=== PATIENT | female | born 1985 | race African-American/Black ===

== ENCOUNTER 2025-01-14 23:39 | Emergency (ER) | payer SELFPAY ==
[~2025-01-14] VITALS: Ht 142.2 cm; Wt 127.5 kg
[2025-01-14 23:39] VITALS: BP 128/57; PULSE 69; RESP 18; TEMP 98.5; O2SAT 99
[2025-01-15] MEDS ORDERED: DILAUDID ONE ×2 (00:31→01:54)
[2025-01-15] MEDS ORDERED: ASPIRIN EC PO ONE (00:31)
[2025-01-15] MEDS: ASPIRIN EC PO STA (00:44)
[2025-01-15] MEDS: DILAUDID IM STA ×2 (00:45→02:02)
[2025-01-15 00:48] VITALS: BP 128/57; PULSE 69; RESP 18; TEMP 98.5; O2SAT 99
[2025-01-15 01:00] VITALS: BP 128/60; PULSE 88; RESP 18; TEMP 98.5; O2SAT 99
[2025-01-15] MEDS: NITROSTAT SL STA (01:55)
[2025-01-15 02:16] LABS: BASOPHIL # 0.1 10^3/uL (0.0-0.1); BASOPHIL % 1.4 % (0.1-1.2); EOSINOPHIL # 0.1 10^3/uL (0.0-0.2); HEMATOCRIT(ML) 26.4 % (36.0-46.0); HEMOGLOBIN 8.1 g/dL (12.0-15.0); LYMPHOCYTES # 1.48 10^3/uL1 (1.0-4.8); LYMPHOCYTES % 33.6 % (24.0-44.0); MEAN CORP HGB CONCENTRATION 30.7 g/dL (33-36.5); MEAN CORP VOLUME 104.3 fL (78-100); MONOCYTES # 0.5 10^3/uL (0.3-0.8); MONOCYTES % 10.2 % (5.0-12.0); NEUTROPHIL # 2.3 10^3/uL (1.8-7.7); NEUTROPHILS % 52.6 % (41.0-85.0); PLATELET COUNT 190 10^3/uL (150-400); RED BLOOD CELL 2.53 10^6/uL (4.00-5.20); RED CELL DISTRIBUTION WIDTH 22.4 % (11.5-14.5); WHITE BLOOD CELL 4.4 10^3/uL (4.5-11.0)
[2025-01-15 02:19] LABS: +ADD MANUAL DIFF(NO CHRG) NO
[2025-01-15 02:28] LABS: PROTHROMBIN PROTIME 10.3 SEC (9.3-11.6)
[2025-01-15 02:36] LABS: ALBUMIN(ML) 3.1 g/dL (3.4-5.0); ALBUMIN/GLOBULIN RATIO 0.885; ANION GAP 13.1; BUN/CREATININE RATIO 17.64 (10.0-20.0); CALCIUM 8.5 mg/dL (8.4-10.5); CARBON DIOXIDE 24.8 mmol/L (20.0-32); CREATINE KINASE MB 0.5 ng/mL (0.5-3.6); CREATININE SERUM 0.51 mg/dL (0.59-1.40); EST GFR, NON-AA 132.9 (>/=60); POTASSIUM 3.9 mmol/L (3.6-5.2)
[2025-01-15 03:35] LABS: ANISOCYTOSIS 3+ (NEGATIVE); HYPOCHROMIA 2+ (NEGATIVE)
== END 2025-01-15 03:59 | disposition left against medical advice (07) ==
LOC: EDBD 23:39 → ER 23:39
DX: D57.00 Hb-SS disease with crisis, unspecified (principal); R07.9 Chest pain, unspecified; I25.10 Atherosclerotic heart disease of native coronary artery without angina pectoris; Z91.041 Radiographic dye allergy status
CPT/HCPCS: 99285; 36569; 80053; 85025; 36415; 85379; 84484; 82553; 83880; 82550; 85610; 85730; 96372; 93005; 71045; J1171 ×2